=== PATIENT | male | born 1990 | race Caucasian/White ===

== ENCOUNTER 2021-12-02 09:14 | Emergency (ER) | payer BC, OTHER ==
--- OUTSIDE RECORDS SUMMARY | 2021-12-02 09:17 | XMS REPORT | Continuity of Care Document ---
:1990 Author Organization [facility] t Address [address] [place] [address] Care Team Providers Name Role Phone Portillo Carter Primary Care Physician Ana Mckeon RN Attending Clinician Unavailable Only, Ang Db Test Attending Clinician Unavailable Dylon PATIENT CONSUMER MARKETERLudmila Attending Clinician LUDMILA OSBORNE Attending Clinician Unavailable Lab, Adc Fam Pob I Attending Clinician Unavailable Tho PATIENT CONSUMER MARKETERVinay Ibrahim Attending Clinician VINAY NETTLES Attending Clinician Unavailable Doctor Unassigned, [place] Attending Clinician Unavailable Payers Payer Name Policy Type Policy Number Effective Date Expiration Date S ource Problems This patient has no known problems. Allergies, Adverse Reactions, Alerts Allergy Allergy Status Severity Reaction(s) Onset Inactive Treating Comm ents Source Name Type Date Date Clinician NO KNOWN Drug Active Univers ALLERGIE Class ity of S [facility] Social History Social Habit Start Date Stop Date Quantity Comments Source Exposure to Not sure [facility] SARS-CoV-2 (event) Medica l Branch Sex Assigned At [birth year] [facility] 00:00:00 00:00:00 Medical Branch Smoking Status Start Date Stop Date Source Unknown if ever smoked [facility] Medications This patient has no known medications. Procedures This patient has no known procedures. Encounters Start End Encounter Admission Attending Care Care Encounter Source Date/Time Date/Time Type Type Clinicians Facility Department ID 2020-10-22 2020-10-22 Letter YASMEEN Mckeon [id number] Univers 00:00:00 00:00:00 (Out) Ana Bryan EMI [id number] it y of HOSPITAL [id number] Da as [phone] [facility] 019 Branch 2020-10-20 2020-10-20 Laboratory Only, Ang Db Test [facility] 1.2.8 [id number] Univers 15:47:34 16:02:34 Only Ludmila [facility] [id number] ity of [place] [id number] Da as Clifford?Blea [phone] Ma dical kney [address] [facility] 2020-10-20 2020-10-20 Outpatient R DYLON [facility] [id number] Univers 15:50:00 15:50:00 LUDMILA fernandes o f [facility] 2019-11-22 2019-11-22 Laboratory Lab, Adc Fam Pob I [facility] 1.2. [id number] Univers 16:55:17 17:15:17 Only Vinay Nettles [facility] [id number] ity of [place] [id number] Da as Professio [phone] Ma [facility] [address] 2019-11-22 2019-11-22 Outpatient R THO [facility] [id number] Univers 17:00:00 17:00:00 VINAY ity of [facility] 2019-11-22 2019-11-22 Letter Doctor YASMEEN [id number] Univers 00:00:00 00:00:00 (Out) Unassigned, EMI [id number] ity of [place] [facility] [id number] Da as [phone] [facility] [address] 2019-11-22 2019-11-22 Letter Doctor YASMEEN [id number] Univers 00:00:00 00:00:00 (Out) Unassigned, EMI [id number] ity of [facility] [id number] Da as [phone] [address] Results This patient has no known results.
[2021-12-02] MEDS ORDERED: NA CHLORIDE 0.9% 1,000 ML ONE (10:10)
[2021-12-02 10:32] LABS: Absolute Lymphocytes (CBC) 1.4 K/uL (0.7-4.9); Hematocrit 49.1 % (39.6-49.0); Lymphocytes % 13.9 % (15.3-44.8); MCV 87.7 fL (80-100); MPV 7.8 fL (7.6-11.3)
[2021-12-02 10:52] LABS: ALT/SGPT 60 U/L (12-78); AST/SGOT 24 U/L (15-37); Albumin 4.1 g/dL (3.4-5.0); Alkaline Phosphatase 68 U/L (45-117); BUN Blood Urea Nitrogen 12 mg/dL (7-18); Bicarbonate 26 mmol/L (21-32); Bilirubin Direct 0.1 mg/dL (0-0.2); Bilirubin Total 0.4 mg/dL (0.2-1.0); Glomerular Filtration Rate 104 ml/min (=/>90); Glucose Level 102 mg/dL (74-106); Potassium 4.1 mmol/L (3.5-5.1); Protein, Total 8.3 g/dL (6.4-8.2); Sodium Level 136 mmol/L (136-145)
[2021-12-02 10:53] LABS: NT PRO-BNP < 5 pg/mL (<125)
[2021-12-02 10:55] LABS: Protime INR 1.03
--- NOTE | 2021-12-02 11:46 | RAD REPORT ---
EXAM DESCRIPTION: CT - Head Brain Wo Cont - 12/02/2021 11:23 am CLINICAL HISTORY: Headache COMPARISON: None. TECHNIQUE: Computed axial tomography of the head was obtained. IV contrast was not requested. All CT scans are performed using dose optimization technique as appropriate and may include automated exposure control or mA/KV adjustment according to patient size. FINDINGS: An intracranial bleed is not seen . The ventricles are normal in caliber. No significant hypodense areas within the brain visualized No extra-axial fluid collection is noted. Fluid within the sinuses/ mastoids is not seen. IMPRESSION: No acute intracranial abnormality is seen. If patient's symptoms persist MRI of the bra in would be recommended.
--- NOTE | 2021-12-02 11:50 | RAD REPORT ---
EXAM DESCRIPTION: Jesus Single View12/02/2021 11:03 am CLINICAL HISTORY: Syncope COMPARISON: none FINDINGS: The lungs appear clear of acute infiltrate. The heart is normal size IMPRESSION: No acute abnormalities displayed
--- NOTE | 2021-12-02 12:53 | EDPHYS ---
Physician Documentation [facility] Name: Deangelo Steward Age: 31 yrs Sex: Male : 1990 Arrival Date: 12/02/2021 Time: 09:18 Bed 23 Private MD: Portillo Carter B ED Physician Brittany Flores HPI: 12/02 10:07 This 31 yrs old Male presents to ER via Ambulatory with complaints of Doesn't Feel jmm Right - ears ringing/leg contractions. 10:07 The patient has experienced near-syncope. Onset: The symptoms/episode began/occurred jmm acutely, today. Duration: This was a single episode, that is still ongoing, but improving. Associated injury: The patient did not suffer any apparent associated injury. This is a 31-year-old male with history of anxiety the presents emerged department with complaints of near syncope. Patient states he was standing at the time. Patient states his hearing decreased and vision blurred. Patient denies any chest pain or shortness of breath. states that the patient has had increasingly worse anxiety, in particular public situations. Patient is currently not taking any medication for anxiety. Historical: - Allergies: 10:04 Amoxicillin; vg1 10:04 Sulfa (Sulfonamide Antibiotics); vg1 - Home Meds: 10:04 None [Active]; vg1 - PMHx: 10:04 Anxiety; vg1 - PSHx: 10:04 None; vg1 - Immunization history:: Client reports having NOT received the Covid vaccine. - Social history:: Smoking status: Patient denies any tobacco usage or history of. ROS: 10:07 Constitutional: Negative for fever, chills, and weight loss, Cardiovascular: Negative jmm for chest pain, palpitations, and edema, Respiratory: Negative for shortness of breath, cough, wheezing, and pleuritic chest pain. 10:07 Neuro: Positive for near syncope. 10:07 Psych: Positive for anxiety. 10:07 All other systems are negative. Exam: 10:07 Constitutional: This is a well developed, well nourished patient who is awake, alert, jmm and in no acute distress. Head/Face: atraumatic. Eyes: EOMI, no conjunctival erythema appreciated ENT: Moist Mucus Membranes Neck: Trachea midline, Supple Chest/axilla: Normal chest wall appearance and motion. Cardiovascular: Regular rate and rhythm. No edema appreciated Respiratory: Normal respirations, no respiratory distress appreciated Abdomen/GI: Non distended Back: Normal ROM Skin: General appearance color normal MS/ Extremity: Moves all extremities, no obvious deformities appreciated, no edema noted to the lower extremities Neuro: Awake and alert Psych: Behavior is normal, Mood is normal, Patient is cooperative and pleasant 15:29 ECG was reviewed by the Attending Physician. [facility] Vital Signs: 10:01 BP 136 / 90; Pulse 96; Resp 15; Temp 98.4(O); Pulse Ox 100% ; Weight 90.72 kg; Height 5 vg1 ft. 9 in. (175.26 cm); Pain 4/10; 10:26 BP 131 / 89; Pulse 93; Resp 20; Pulse Ox 100% on R/A; Pain 0/10; ld1 11:11 BP 120 / 85; Pulse 81; Resp 19; Pulse Ox 100% on R/A; ld1 12:12 BP 118 / 76; Pulse 77; Resp 18; Pulse Ox 98% on R/A; ld1 10:01 Body Mass Index 29.53 (90.72 kg, 175.26 cm) vg1 MDM: 10:07 Patient medically screened. [facility] 12:52 Data reviewed: vital signs, nurses notes. Counseling: I had a detailed discussion with [facility] the patient and/or guardian regarding: the historical points, exam findings, and any diagnostic results supporting the discharge/admit diagnosis, the need for outpatient follow up, to return to the emergency department if symptoms worsen or persist or if there are any questions or concerns that arise at home. 12/02 10:08 Order name: Basic Metabolic Panel; Complete Time: 10:[address] [facility] 12/02 10:08 Order name: CBC with Diff [facility] 12/02 10:08 Order name: D-Dimer; Complete Time: 10:[address] [facility] 12/02 10:08 Order name: LFT's; Complete Time: 10:[address] [facility] 12/02 10:08 Order name: Magnesium; Complete Time: 10:[address] [facility] 12/02 10:08 Order name: NT PRO-BNP; Complete Time: 10:[address] [facility] 12/02 10:08 Order name: PT-INR; Complete Time: 10:[address] [facility] 12/02 10:08 Order name: Troponin HS; Complete Time: 10:[address] [facility] 12/02 10:08 Order name: XRAY Chest (1 view); Complete Time: 11:[address] [facility] 12/02 10:08 Order name: EKG; Complete Time: 10:[address] [facility] 12/02 10:08 Order name: Cardiac monitoring; Complete Time: 10:[address] [facility] 12/02 10:35 Order name: CBC with Automated Diff EDMS 12/02 11:07 Order name: CT Head Brain wo Cont; Complete Time: 11:[address] [facility] 12/02 10:08 Order name: EKG - Nurse/Tech; Complete Time: 10:[address] [facility] 12/02 10:08 Order name: IV Saline Lock; Complete Time: 10:[address] [facility] 12/02 10:08 Order name: Labs collected and sent; Complete Time: 10:[address] [facility] 12/02 10:08 Order name: O2 Per Protocol; Complete Time: 10:[address] [facility] 12/02 10:08 Order name: O2 Sat Monitoring; Complete Time: 10:15 jm EC:29 Rate is 86 beats/min. Rhythm is regular. QRS [place] is Normal. AR interval is normal. QRS jmm interval is normal. QT interval is normal. No Q waves. T waves are Normal. No ST changes noted. Reviewed by me. Administered Medications: 10:25 Drug: NS 0.9% 1000 ml Route: IV; Rate: 1 bolus; Site: right antecubital; ld1 Disposition Summary: 12/02/21 12:52 Discharge Ordered Location: Home [facility] Condition: Stable [facility] Diagnosis - Syncope Near jm - Generalized anxiety disorder [facility] Followup: [facility] - With: Portillo Carter MD - When: 2 - 3 days - Reason: Recheck today's complaints, Continuance of care, Re-evaluation by your physician Discharge Instructions: - Discharge Summary Sheet [facility] - Near-Syncope jm - Managing Anxiety, Adult [facility] Forms: - Medication Reconciliation Form [facility] - Thank You Letter [facility] - Antibiotic Education [facility] - Prescription Opioid Use [facility] Prescriptions: - Lexapro 10 mg Oral tablet - take 1 tablet by ORAL route once daily; 30 tablet; Refills: 0, Product [facility] Selection Permitted Addendum: 12/05/2021 03:25 STAFF ATTESTATION STATEMENT: I was immediately available onsite in the emergency s d2 department for consultation in the care of this patient. I did not see or examine this patient. Brittany Flores MD. Signatures: Dispatcher [employer] EDPrasad Armenta PA PA jmm Garcia, Victoria RN RN vg1 Arianna Tejeda RN RN ld1 Brittany Flores MD MD sd2 Corrections: (The following items were deleted from the chart) 12/02 10:05 10:04 Allergies: No Known Allergies; vg1 vg1 10: 10:04 PMHx: None; vg1 vg1
--- NOTE | 2021-12-02 12:53 | ER ---
Nurse's Notes [facility] Name: Deangelo Steward Age: 31 yrs Sex: Male : 1990 Arrival Date: 12/02/2021 Time: 09:18 Bed 23 Private MD: Portillo Carter B Diagnosis: Syncope Near;Generalized anxiety disorder Presentation: 12/02 10:01 Chief complaint: Patient states: at about 0715 this morning pt stated " I was at work vg1 and all of a sudden both my ears had ringing and both my legs felt shaking and I had to hold onto the fence next to me". At this time pt denies ringing in JEANNA ears or pain but stated "I still feel weird and have a little headache" denies nausea. Coronavirus screen: Vaccine status: Patient reports being unvaccinated. Client denies travel out of the [place] in the last 14 days. Ebola Screen: Patient negative for fever greater than or equal to 101.5 degrees Fahrenheit, and additional compatible Ebola Virus Disease symptoms Patient denies exposure to infectious person. Initial Sepsis Screen: Does the patient meet any 2 criteria? No. Patient's initial sepsis screen is negative. Does the patient have a suspected source of infection? No. Patient's initial sepsis screen is negative. Risk Assessment: Do you want to hurt yourself or someone else? Patient reports no desire to harm self or others. Onset of symptoms was December 02, 2021. 10:01 Method Of Arrival: Ambulatory vg1 10:01 Acuity: SHABANA 3 vg1 Triage Assessment: 10:04 General: Appears uncomfortable, Behavior is calm, cooperative. Pain: Complains of pain vg1 in head Pain currently is 4 out of 10 on a pain scale. Neuro: Level of Consciousness is awake, alert, obeys commands, Oriented to person, place, time, situation, Reports headache. Historical: - Allergies: 10:04 Amoxicillin; vg1 10:04 Sulfa (Sulfonamide Antibiotics); vg1 - Home Meds: 10:04 None [Active]; vg1 - PMHx: 10:04 Anxiety; vg1 - PSHx: 10:04 None; vg1 - Immunization history:: Client reports having NOT received the Covid vaccine. - Social history:: Smoking status: Patient denies any tobacco usage or history of. Screenin:26 Abuse screen: Denies threats or abuse. Denies injuries from another. Nutritional ld1 screening: No deficits noted. Tuberculosis screening: No symptoms or risk factors identified. Fall Risk None identified. Assessment: 10:26 General: Appears in no apparent distress. comfortable, Behavior is calm, cooperative, ld1 appropriate for age. Pain: Denies pain. Neuro: Level of Consciousness is awake, alert, obeys commands, Oriented to person, place, time, situation. Cardiovascular: Capillary refill < 3 seconds Patient's skin is warm and dry. Rhythm is sinus rhythm. Respiratory: Airway is patent Respiratory effort is even, unlabored. GI: Abdomen is flat, non-distended. : No signs and/or symptoms were reported regarding the genitourinary system. EENT: No signs and/or symptoms were reported regarding the EENT system. Derm: No signs and/or symptoms reported regarding the dermatologic system. Musculoskeletal: No signs and/or symptoms reported regarding the musculoskeletal system. Vital Signs: 10:01 BP 136 / 90; Pulse 96; Resp 15; Temp 98.4(O); Pulse Ox 100% ; Weight 90.72 kg; Height 5 vg1 ft. 9 in. (175.26 cm); Pain 4/10; 10:26 BP 131 / 89; Pulse 93; Resp 20; Pulse Ox 100% on R/A; Pain 0/10; ld1 11:11 BP 120 / 85; Pulse 81; Resp 19; Pulse Ox 100% on R/A; ld1 12:12 BP 118 / 76; Pulse 77; Resp 18; Pulse Ox 98% on R/A; ld1 10:01 Body Mass Index 29.53 (90.72 kg, 175.26 cm) vg1 ED Course: 09:18 Patient arrived in ED. as 09:18 Portillo Carter MD is Private Physician. as 09:56 Prasad Zapata PA is [facility] 09:56 Brittany Flores MD is Attending Physician. [facility] 10:04 Triage completed. vg1 10:04 Arm band placed on. vg1 10:10 Arianna Tejeda RN is Primary Nurse. ld1 10:25 Inserted saline lock: 20 gauge in right antecubital area, using aseptic technique. ld1 Blood collected. 10:26 Patient has correct armband on for positive identification. Placed in gown. Bed in low ld1 position. Call light in reach. Side rails up X2. crop nutrition scientist on. Pulse ox on. NIBP on. Door closed. Noise minimized. Warm blanket given. 10:26 No provider procedures requiring assistance completed. ld1 11:04 XRAY Chest (1 view) In Process Unspecified. EDMS 11:25 CT Head Brain wo Cont In Process Unspecified. EDMS 12:52 Portillo Carter MD is Referral Physician. jmm 13:07 IV discontinued, intact, bleeding controlled, No redness/swelling at site. ld1 Administered Medications: 10:25 Drug: NS 0.9% 1000 ml Route: IV; Rate: 1 bolus; Site: right antecubital; ld1 Medication: 10:26 VIS not applicable for this client. ld1 Outcome: 12:52 Discharge ordered by . jm 13:07 Discharged to home ambulatory, with family. ld1 13:07 Condition: stable 13:07 Discharge instructions given to patient, family, Instructed on discharge instructions, follow up and referral plans. Demonstrated understanding of instructions, follow-up care. 13:08 Patient left the ED. ld1 Signatures: Dispatcher [employer] EDMS Prasad Zapata PA PA jmm Martinez, Amelia as Garcia, Victoria, RN RN vg1 Arianna Tejeda, SHARONA RN ld1 Corrections: (The following items were deleted from the chart) 10:05 10:04 Allergies: No Known Allergies; vg1 vg1 10:05 10:04 PMHx: None; vg1 vg1
[2021-12-02 13:12] VITALS: TEMP 98.4
[2021-12-02 13:15] VITALS: BP 118/76; O2SAT 98
--- NOTE | 2021-12-03 14:05 | EKG ---
Test Date: 2021-12-02 Test Time: 10:20:56 [employer]: YOSVANY MEASUREMENT RESULTS: Intervals: Rate: 86 SC: 124 QRSD: 80 QT: 358 QTc: 428 [place]: P: 61 SC: 124 QRS: 53 T: 42 INTERPRETIVE STATEMENTS: Normal sinus rhythm Normal ECG No previous ECG available for comparison Electronically Signed On 12-03-21 14:02:17 CDT by Lloyd Mondragon
== END 2021-12-02 13:08 | disposition home or self-care (01) ==
LOC: ER 09:14
DX: R55 Syncope and collapse (principal); F41.1 Generalized anxiety disorder; Z88.1 Allergy status to other antibiotic agents; Z88.2 Allergy status to sulfonamides
CPT/HCPCS: 93005; 85025; 80048; 36415; 83735; 85610; 85379; 80076; 84484; 83880; 70450; 71045; 99284; J7030